=== PATIENT | male | born 1950 | race Caucasian/White ===

== ENCOUNTER → 2021-02-04 | Day surgery (SDC) | payer MEDICARE, OTHER ==
[~2021-02-04] MED LIST: HYDROmorphone 1 MG/ML Syringe IVPUSH PRN; Lactated Ringers 1,000 ML IV SCH; Lidocaine 1% 30 ML SDV ONE; Ondansetron 4 MG/2 ML SDV IVPUSH PRN; Sodium Chloride 0.9% 10 ML Syringe FLUSH PRN; ceFAZolin 1 GM Vial IVPUSH ONE
[2021-02-04] MEDS: Acetaminophen/oxyCODONE 325-5 MG Tab PO PRN (17:37)
--- NOTE | 2021-02-04 21:37 | OR ---
DATE OF OPERATION: 02/04/2021 PREOPERATIVE DIAGNOSIS: BILATERAL INGUINAL HERNIA. POSTOPERATIVE DIAGNOSIS: BILATERAL INGUINAL HERNIA. SURGEON: Thom Martell MD PROCEDURE: OPEN REPAIR OF BILATERAL INGUINAL HERNIA (RIGHT-SIDED WAS INDIRECT, LEFT-SIDED WAS DIRECT). ANESTHESIA: General. ESTIMATED BLOOD LOSS: Minimum. SPECIMEN: Right inguinal hernia sac. INDICATIONS: This 70-year-old male has symptomatic bilateral inguinal hernias. FINDINGS: Right indirect inguinal hernia, left direct inguinal hernia. DESCRIPTION OF PROCEDURE: After adequate preparation, an incision was made over the right groin and carried down through the external oblique to expose the inguinal canal. The cord structures and sac were elevated out of the inguinal canal, and the sac was identified and dissected free from the cord structures down to the deep inguinal ring. A 2-0 Prolene suture was used to ligate the sac at the deep ring, and the distal sac was amputated. The patient is actually so thin and so together that his conjoined tendon actually was almost right on top of his inguinal ligament. I elected not to apply mesh on this side. Interrupted 0 Prolene sutures were used in a Bassini fashion for repair. The fascia was closed with 0 Vicryl and the skin closed with 4-0 Vicryl. The incision was made over the left groin to approach the second hernia. This was carried down through the external oblique to open the inguinal canal. The cord structures were identified, and he had a direct hernia on this side and there was no indirect sac. This was dissected free from the sac and reduced back into the abdomen as before. The patient had such a small 1 cm space from the inguinal ligament to the conjoined tendon, again I elected not to apply mesh on this side either. This was fixed in the same way with interrupted 0 Prolene sutures. Hemostasis was controlled. The external oblique was oversewn over the cord structures and the skin closed with Vicryl. BPB/MODL /[id number]
[2021-02-05] MEDS: Acetaminophen/oxyCODONE 325-5 MG Tab PO PRN (08:07)
--- NOTE | 2021-02-05 08:30 | PCM.SN.2 ---
- Free Text/Narrative Note: Stable POD #1. PO liquid tolerated well. Wounds with slight bruising. Ambulates well. Can discharge today. FU my clini 02-17-21 if needed. Percocet #10 given for pain. No activity or diet restrictions.
== END | disposition home or self-care (01) ==
LOC: CC.SDS 09:46
PROVIDERS: ATTEND Surgery
DX: K40.21 Bilateral inguinal hernia, without obstruction or gangrene, recurrent (principal); M62.838 Other muscle spasm
CPT/HCPCS: 00830; 49520; 88302; 99100; A9270-GY; J0690; J7120

== ENCOUNTER → 2022-10-14 | Day surgery (SDC) | payer MEDICARE, OTHER ==
[~2022-10-14] MED LIST changes: -HYDROmorphone 1 MG/ML Syringe IVPUSH PRN; +Ketamine 200 MG/20 ML MDV ONE; -Lidocaine 1% 30 ML SDV ONE; -Ondansetron 4 MG/2 ML SDV IVPUSH PRN; +Propofol 200 MG/20 ML SDV ONE; -Sodium Chloride 0.9% 10 ML Syringe FLUSH PRN; -ceFAZolin 1 GM Vial IVPUSH ONE; +fentaNYL 50 MCG/ML SDV ONE
== END ==
LOC: CC.SDS 07:49
PROVIDERS: ATTEND Family Medicine
DX: Z12.11 Encounter for screening for malignant neoplasm of colon (principal); M62.838 Other muscle spasm; F17.210 Nicotine dependence, cigarettes, uncomplicated; Z79.899 Other long term (current) drug therapy; Z98.890 Other specified postprocedural states
CPT/HCPCS: 00812; 99100; J2704; J3010; J3490; J7120

== ENCOUNTER → 2022-10-21 | Day surgery (SDC) | payer MEDICARE, OTHER ==
[~2022-10-21] MED LIST changes: +ePHEDrine 50 MG/ML SDV ONE
== END ==
LOC: CC.SDS 10:14
PROVIDERS: ATTEND Family Medicine
DX: Z12.11 Encounter for screening for malignant neoplasm of colon (principal); K63.5 Polyp of colon; K57.30 Diverticulosis of large intestine without perforation or abscess without bleeding; Z98.890 Other specified postprocedural states; Z80.0 Family history of malignant neoplasm of digestive organs; Z90.49 Acquired absence of other specified parts of digestive tract
CPT/HCPCS: 00811; 88305; 99100; J2704; J3010; J3490